=== PATIENT | female | born 1995 | race African-American/Black ===

== ENCOUNTER 2017-08-16 02:32 | Emergency (ER) | payer OTHER ==
[~2017-08-16] VITALS: Ht 152.4 cm; Wt 52.0 kg
[2017-08-16 02:34] VITALS: BP 167/67; PULSE 78; RESP 16; TEMP 98.3; O2SAT 100
--- NOTE | 2017-08-16 02:53 | PD ---
HPI Chief Complaint: Respiratory Symptoms Time Seen by Provider: 02:44 Travel History International Travel<30 days: No Contact w/Intl Traveler<30days: No Traveled to known affect area: No History of Present Illness HPI 21-year-old black female presents to emergency department with complaints of right sided chest wall pain. She states that she woke this morning with pain. It has gotten worse throughout the day. It is constant but worsened by taking a deep breath, coughing or leaning forward. She states the pain also is worse when she palpates the area. The pain is moderate but can be severe. No alleviating factors. She denies any recent illness or injury. No recent colds. She does not smoke, take control, or have any long periods of immobility. She denies any connective tissue disorders and family history of clotting disorder. Patient denies any shortness of breath, nausea, vomiting or diaphoresis. No radiation of pain. PFSH Past Medical History Medical History: Denies Significant Hx Tetanus Vaccination: < 5 Years ?: Not LMP: 08/01/17 Past Surgical History Surgical History: No Previous Surgery Social History Alcohol Use: Yes (OCC) Tobacco Use: No Substance Use: No Allergies-Medications (Allergen,Severity, Reaction): Coded Allergies: No Known Allergies (Unverified , 08/16/17) Review of Systems Except as stated in HPI: all other systems reviewed are Neg Physical Exam Narrative GENERAL: Well-developed, well-nourished in no apparent distress. Nontoxic appearing. HEAD: Normocephalic, atraumatic. EYES: Pupils equal round and reactive. Extraocular motions intact. No scleral icterus. No injection or drainage. ENT: Nose clear. Throat without erythema, tonsillar hypertrophy or exudate. Uvula midline. Airway patent. NECK: Trachea midline. Supple, nontender, moves head freely. No central bony tenderness or spasm. CARDIOVASCULAR: Regular rate and rhythm without murmurs, gallops, or rubs. CHEST: Tender right sternal border without deformity or crepitance. No retractions or use of accessory muscles. RESPIRATORY: Clear to auscultation. Breath sounds equal bilaterally. No wheezes , rales, or rhonchi. GASTROINTESTINAL: Abdomen soft, non-tender, nondistended. No hepato-splenomegaly , or palpable masses. No guarding. EXTREMITIES: No clubbing, cyanosis, or edema. No joint tenderness. No Homans sign. Neurovascular intact. BACK: Nontender without deformity. No flank tenderness. NEUROLOGICAL: Awake, alert and oriented x 3 .Cranial nerves grossly intact. Motor and sensory grossly within normal limits. Normal speech. Data Data Last Documented VS Vital Signs Date Time Temp Pulse Resp B/P (MAP) Pulse Ox O2 Delivery O2 Flow Rate FiO2 08/16/17 02:34 98.3 78 16 167/67 (100) 100 Room Air Orders Orders Electrocardiogram (08/16/17 02:47) Chest, Single Ap (08/16/17 02:47) Ibuprofen (Motrin) (08/16/17 03:00) [facility] Medical Decision Making Medical Screen Exam Complete: Yes Emergency Medical Condition: Yes Medical Record Reviewed: Yes Interpretation(s) Chest x-ray: Negative for acute pulmonary process. Bilateral piercings EKG: Normal sinus rhythm with a ventricular rate of 67. Normal intervals. Normal axis. No abnormal ST-T wave changes. Differential Diagnosis Differential diagnoses: Chest wall pain, pleurisy, pericarditis, pneumothorax, costochondritis Narrative Course Patient's given Motrin 600 mg by mouth. Patient is PERC negative Patient's EKG and chest x-ray are unremarkable for any acute process. Patient' s symptoms are consistent with costochondritis. Diagnosis Primary Impression: Costochondritis, acute Patient Instructions: General Instructions Additional Instructions: Rest. Heating pad. Diclofenac. Follow-up with a medical doctor in one week. Return to the ER for problems. Med/Other Pt SpecificInfo: Prescription(s) given Disposition: 01 DISCHARGE HOME Condition: Stable Dexter Vides Aug 16, 2017 02:53
[2017-08-16] MEDS ORDERED: IBUPROFEN 600 MG TAB PO ONE (03:00)
[2017-08-16] MEDS ORDERED: DICL75TA PO (03:13)
--- NOTE | 2017-08-16 03:20 | RADRPT ---
EXAM DATE/TIME: 08/16/2017 03:00 [facility] COMPARISON: No previous studies available for comparison. INDICATIONS : Chest pain. MEDICAL HISTORY : None. SURGICAL HISTORY : None. ENCOUNTER: Initial ACUITY: 1 day PAIN SCORE: 6/10 LOCATION: Bilateral upper chest FINDINGS: A single view of the chest demonstrates the lungs to be symmetrically aerated without evidence of mas s, infiltrate or effusion. The cardiomediastinal contours are unremarkable. Osseous structures are intact. CONCLUSION: Normal examination. Mickey Flores MD on August 16, 2017 at 3:18 Board Certified Radiologist. This report was verified electronically.
--- NOTE | 2017-08-16 16:05 | EKG ---
Date Performed: 08/16/2017 Time Performed: 02:57:01 PTAGE: 21 years EKG: Sinus rhythm NORMAL ECG PREVIOUS TRACING : 08/16/2017 02.54 DOCTOR: Lindsey Garcia Interpretating Date/Time 08/16/2017 16:03:31
== END 2017-08-16 03:36 | disposition home or self-care (01) ==
LOC: NEPD 02:32
DX: M94.0 Chondrocostal junction syndrome [Tietze] (principal)
CPT/HCPCS: 71010; 93005; 99284

== ENCOUNTER 2017-10-11 00:18 | Emergency (ER) | payer OTHER ==
[~2017-10-11] VITALS: Ht 152.4 cm; Wt 52.0 kg
[~2017-10-11 00:18] MED LIST: DICL75TA PO
[2017-10-11 00:20] VITALS: BP 112/75; PULSE 80; RESP 16; TEMP 98.8; O2SAT 99
== END 2017-10-11 00:33 | disposition left against medical advice (07) ==
LOC: NED 00:18
DX: R07.9 Chest pain, unspecified (principal); Z53.21 Procedure and treatment not carried out due to patient leaving prior to being seen by health care provider
CPT/HCPCS: 99281